=== PATIENT | female | born 1935 | race Caucasian/White ===

== ENCOUNTER → 2016-09-22 | Outpatient (CLI) | payer OTHER | LOC: RAD 14:31 → EDSTATUS 14:35 | DX: Z12.31 Encounter for screening mammogram for malignant neoplasm of breast (principal) ==

== ENCOUNTER → 2017-06-09 | Outpatient (CLI) | payer OTHER, MEDICARE | LOC: MRI 09:03 | DX: G44.049 Chronic paroxysmal hemicrania, not intractable (principal) ==

== ENCOUNTER → 2017-10-20 | Outpatient (CLI) | payer OTHER, MEDICARE | LOC: RAD 01:36 | DX: Z12.31 Encounter for screening mammogram for malignant neoplasm of breast (principal) ==

== ENCOUNTER → 2018-10-18 | Outpatient (CLI) | payer OTHER, MEDICARE | LOC: RAD 01:04 | DX: Z12.31 Encounter for screening mammogram for malignant neoplasm of breast (principal) ==

== ENCOUNTER → 2020-02-07 | Outpatient (CLI) | payer OTHER, MEDICARE | LOC: RAD 12:23 | PROVIDERS: ATTEND Nurse Practitioner | DX: M16.11 Unilateral primary osteoarthritis, right hip (principal); M25.751 Osteophyte, right hip; M51.34 Other intervertebral disc degeneration, thoracic region; M51.36 Other intervertebral disc degeneration, lumbar region; M85.88 Other specified disorders of bone density and structure, other site; G89.29 Other chronic pain ==

== ENCOUNTER → 2020-04-09 | Outpatient (CLI) | payer OTHER, MEDICARE ==
[~2020-04-09] MED LIST: AMLODIPINE BESY10 MG PO; CIPRO500 M1 PO; ESOMEPRAZOLE MA40 MG PO; PHENERGAN 25 MG25 MG PO; SERTRALINE HCL50 MG PO; TRAMADOL 50 MG50 MG PO; XANAX 0.25 MG0.25 MG PO; ZOLPIDEM TARTRA10 MG PO
== END ==
LOC: CAT 12:20
PROVIDERS: ATTEND Family Medicine
DX: N28.1 Cyst of kidney, acquired (principal); R63.4 Abnormal weight loss

== ENCOUNTER 2020-04-11 12:53 | Emergency (ER) | payer OTHER, MEDICARE ==
[~2020-04-11] VITALS: Ht 165.1 cm; Wt 61.7 kg
[2020-04-11 13:44] LABS: ABSOLUTE NEUTROPHILS 6.6 thou/uL (1.4-8.2); BASOPHILS 0.5 % (0.0-2.0); EOSINOPHILS 0.3 % (0.0-3.0); HEMATOCRIT 32.5 % (37.0-47.0); HEMOGLOBIN 10.5 gm/dL (12.0-15.0); LYMPHOCYTES 8.5 % (24.0-44.0); MCH 28.3 pg (26.0-34.0); MCHC 32.4 g/dL (28.0-37.0); MCV 87.1 fL (80.0-100.0); MONOCYTES 6.6 % (1.0-8.0); PLATELET COUNT 387 thou/uL (150-400); POLYS 84.1 % (36.0-66.0); RBC 3.73 mil/uL (4.20-5.00); RDW 15.9 % (10.5-14.5); WBC 7.8 thou/uL (4.0-11.0)
[2020-04-11 13:50] LABS: CALCIUM 9.9 mg/dL (8.5-10.1); CREATININE 0.9 mg/dL (0.6-1.0); POTASSIUM 3.5 mmol/L (3.5-5.1)
[2020-04-11] MEDS ORDERED: PHENERGAN 25 MG25 MG PO (13:52)
[2020-04-11] MEDS ORDERED: TRAMADOL 50 MG50 MG PO (13:53)
[2020-04-11] MEDS ORDERED: AMLODIPINE BESY10 MG PO (13:54)
[2020-04-11] MEDS ORDERED: SERTRALINE HCL50 MG PO (13:54)
[2020-04-11] MEDS ORDERED: ESOMEPRAZOLE MA40 MG PO (13:54)
[2020-04-11 13:57] LABS: ALBUMIN 2.9 g/dL (3.4-5.0); DIRECT BILIRUBIN 0.2 mg/dL (<0.1-0.2); TOTAL BILIRUBIN 0.8 mg/dL (0.2-1.0); TOTAL PROTEIN 6.9 g/dL (6.4-8.2)
[2020-04-11] MEDS ORDERED: ZOLPIDEM TARTRA10 MG PO (13:57)
[2020-04-11] MEDS ORDERED: CIPRO500 M1 PO (14:03)
--- NOTE | 2020-04-11 14:11 | EKG ---
[address] [place] [address] ELECTROCARDIOGRAM REPORT Name: SEKOUJONH Aguirre Room #: [facility]#: [id number] Admission: Attend Phys: Discharge: Date of : 35 Report #: [id number] [facility] ED Test Date: 2020-04-11 Test Time: 13:30:38 Pat Name: JONH SAPP Department: Room: Gender: F Host Coordinator: : 1935 Requested By: Tiburcio Golden Order Number: [id number] MD: Boni Lizarraga Measurements Intervals Central Rate: 88 P: 32 AK: 127 QRS: -8 QRSD: 89 T: 17 QT: 352 QTc: 426 Interpretive Statements Sinus rhythm Borderline T abnormalities, anterior leads Baseline wander in lead(s) V4 No previous ECG available for comparison Electronically Signed On 04-11-2020 14:11:35 PATIENT FINANCIAL COUNSELOR by Boni Lizarraga [email or web address] <ELECTRONICALLY SIGNED> By: Boni Lizarraga MD, [facility] 04/11/20 1411 1330 1330 Boni Lizarraga MD, FACC /EPI
[2020-04-11 14:36] LABS: URINE BLOOD 2+ (Negative); URINE COLOR YELLOW; URINE GLUCOSE-RANDOM* NEGATIVE (Negative); URINE KETONES 1+ (Negative); URINE NITRITE-REFLEX NEGATIVE (Negative); URINE PROTEIN (DIPSTICK) 1+ (Negative); URINE SPECIFIC GRAVITY 1.015 (1.005-1.035)
[2020-04-11 14:38] LABS: URINE CLARITY CLOUDY; URINE LEUKOCYTES-REFLEX 3+ (Negative)
[2020-04-11 14:41] LABS: ICTOTEST (BILI CONFIRMATORY) Negative (Negative); URINE BILIRUBIN NEGATIVE (Negative)
[2020-04-11] MEDS ORDERED: XANAX 0.25 MG0.25 MG PO (14:43)
[2020-04-11 15:06] LABS: BACTERIA-REFLEX 1-9 Few /HPF (None Seen); CASTS None Seen /LPF (None Seen); CRYSTALS None Seen /LPF (None Seen); SQUAMOUS >10 Many /LPF (0-3); URINE RBC 0-2 Rare /HPF (0-2); YEAST-REFLEX Present (None Seen)
[2020-04-11 15:55] VITALS: BP 123/58
== END 2020-04-11 16:00 | disposition home or self-care (01) ==
LOC: ER 12:53
PROVIDERS: Emergency Medicine
DX: R53.1 Weakness (principal); M19.011 Primary osteoarthritis, right shoulder; K21.9 Gastro-esophageal reflux disease without esophagitis; I10 Essential (primary) hypertension; Z88.2 Allergy status to sulfonamides; Z79.899 Other long term (current) drug therapy; Z79.2 Long term (current) use of antibiotics